=== PATIENT | female | born 2000 | race Caucasian/White ===

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

== ENCOUNTER 2018-01-17 20:21 | Emergency (ER) | payer OTHER ==
[2018-01-17 20:36] VITALS: BP 133/87
[2018-01-17] MEDS ORDERED: Ondansetron ODT TAB* 4 MG SL ONE (20:39)
[2018-01-17] MEDS ORDERED: Meclizine TAB* 12.5 MG PO ONE (20:40)
[2018-01-17] MEDS ORDERED: Diazepam SYRINGE* 5 MG/ML 2 ML SYRINGE (10 MG total) IM ONE (21:16)
--- NOTE | 2018-01-17 21:18 | UC ---
Dizzy HPI HPI Summary: Pt is a 17 year old female presenting to the UC with a chief complaint of dizziness and nausea. According to the pt, everything is spinning and walking is difficult. The sx came on when she woke up but she thought it was just being tired, and it got much worse at some point later in the day. Moving her head, eyes, and closing her eyes makes it worse. Keeping her head still helps. The pt is unsure if she has gone through this before, and that her arms and legs are somewhat tingly. The pt denies any swimming, changes in hearing, and any pain or stiffness in neck, as well as any hx of tobacco or marijuana use. Pt also reports heart palpitations and sob when she moves, and a single glass of wine last night, as well as a hx of GERD, esophageal spasms, and scoliosis. Pt is on no meds currently. - History Of Current Complaint Chief Complaint: UCGeneralIllness Stated Complaint: NAUSEA Time Seen by Provider: 01/17/18 20:37 Hx Obtained From: Patient Hx Last Menstrual Period: 01/17/18 Onset/Duration: Gradual Onset, Lasting Hours - since this morning Timing: Constant Severity Initially: Mild Severity Currently: Mild Pain Intensity: 0 Pain Scale Used: 0-10 Numeric Character: Room Spinning, Dizzy Aggravating Factor(s): Exertion, Position Change Alleviating Factor(s): Other - not moving Associated Signs And Symptoms: Positive: Nausea, Vomiting, SOB, Palpitations - Allergies/Home Medications Allergies/Adverse Reactions: Allergies Allergy/AdvReac Type Severity Reaction Status Date / Time ranitidine [From Zantac] Allergy Unknown Verified 01/17/18 20:36 Reaction Details PMH/Surg Hx/FS Hx/Imm Hx Previously Healthy: No - hx of scoliosis Endocrine History: Diabetes - negative GI/ History: Gastroesophageal Reflux, Other Other GI/ History: esophageal spasms - Surgical History Surgical History: Yes Surgery Procedure, Year, and Place: right foot 5th toe - Family History Known Family History: Positive: Hypertension, Blood Disorder - anemia - Social History Occupation: Student Lives: Dormitory/Roommates Alcohol Use: Rare Substance Use Type: None Smoking Status (MU): Never Smoked Tobacco Review of Systems Constitutional: Fever Respiratory: Shortness Of Breath Gastrointestinal: Vomiting, Nausea Neurological: Weakness, Other - dizziness, tingling in extremities All Other Systems Reviewed And Are Negative: Yes Physical Exam - Summary Physical Exam Summary: Appearance: Well-appearing, Well-nourished Skin: Warm Eyes: Normal ENT: Normal Neck: Supple, nontender Respiratory: Clear to auscultation Cardiovascular: Normal S1, S2. No murmurs. Normal distal pulses in tibial and radial bilaterally. Abdomen: Soft, nontender Musculoskeletal: Normal, Strength/ROM Intact Neurological: Normal, A&Ox3 Psychiatric: Normal General: No acute distress Triage Information Reviewed: Yes Vital Signs: Initial Vital Signs Temp 100 F 01/17/18 20:30 Pulse 94 01/17/18 20:30 Resp 20 01/17/18 20:30 BP 133/87 01/17/18 20:30 Pulse Ox 100 01/17/18 20:30 Vital Signs Reviewed: Yes Dizzy Course/Dx - Course Course Of Treatment: Symptoms consistent with peripheral vertigo, patient feels much better after medications given, instructed to follow up with primary care physician. Agrees to and understands discharge instructions. Vital signs stable, well-appearing. Normal gait. - Differential Dx/Diagnosis Provider Diagnoses: bppv Discharge - Sign-Out/Discharge Documenting (check all that apply): Patient Departure - home All imaging exams completed and their final reports reviewed: No Studies - Discharge Plan Condition: Stable Disposition: HOME Prescriptions: LORazepam TAB(*) [Ativan 0.5 MG TAB (*)] 0.5 mg PO BEDTIME PRN #6 tab MDD 1 tab PRN Reason: Dizziness Meclizine TAB* [Antivert 12.5 TAB*] 25 mg PO TID PRN #20 tab PRN Reason: Dizziness Ondansetron ODT TAB* [Zofran 4 MG Odt TAB*] 4 mg PO Q8H PRN #12 tab.odt PRN Reason: Nausea Patient Education Materials: Vertigo (DC), Dizziness (ED) Forms: *School Release Referrals: Breanna Barr MD [Medical Doctor] - Additional Instructions: PLEASE MAKE AN APPOINTMENT TO SEE A PRIMARY CARE DOCTOR WITHIN 1-2 WEEKS IF NO IMPROVEMENT. PLEASE TAKE MEDICATIONS DIRECTED. PLEASE DO NOT OPERATE MACHINERY WHILE TAKING THESE MEDICATIONS. PLEASE SEEK MEDICAL ATTENTION IMMEDIATELY FOR ANY WORSENING OR CONCERNING SYMPTOMS. - Billing Disposition and Condition Condition: STABLE Disposition: Home - Attestation Statements Document Initiated by Scribe: Yes Documenting Scribe: Melania Edmonds Provider For Whom Scribe is Documenting (Include Credential): Davion Barnes MD. Scribe Attestation: Melania Hawkins, scribed for Davion Barnes MD. on 01/17/18 at 2325. Scribe Documentation Reviewed: Yes Provider Attestation: The documentation as recorded by the Melania mensah accurately reflects the service I personally performed and the decisions made by me, Davion Barnes MD.
[2018-01-17] MEDS ORDERED: LORazepam TAB(*) 1 MG PO ONE (21:27)
== END 2018-01-17 22:30 | disposition home or self-care (01) ==
LOC: UCEAST 20:21
DX: H81.11 Benign paroxysmal vertigo, right ear (principal); Z88.8 Allergy status to other drugs, medicaments and biological substances
CPT/HCPCS: 99212; A9270-GY; G0463; J3360

== ENCOUNTER 2018-04-18 20:59 | Emergency (ER) | payer OTHER ==
[2018-04-18 21:07] VITALS: BP 130/93
[2018-04-18] MEDS ORDERED: Ibuprofen TAB* 600 MG PO ONE (21:13)
--- NOTE | 2018-04-18 21:17 | UC ---
Lower Extremity/Ankle HPI - HPI Summary HPI Summary: 17-year-old woman comes in to clinic today with a chief complaint of right ankle pain swelling and injury. Today the patient tripped and fell down 2 stairs and she inverted her right ankle. Should pain right away in the lateral aspect and swelling of the distal malleolus. He has been able to bear weight but it does hurt to bear weight. When she rested the pain is less. No prior injury to that ankle. Denies other injuries. - History of Current Complaint Chief Complaint: UCUpperExtremity Stated Complaint: ANKLE INJURY Time Seen by Provider: 04/18/18 21:10 Hx Last Menstrual Period: 3 wks ago Pain Intensity: 4 - Allergies/Home Medications Allergies/Adverse Reactions: Allergies Allergy/AdvReac Type Severity Reaction Status Date / Time ranitidine [From Zantac] Allergy Unknown Verified 04/18/18 21:07 Reaction Details Home Medications: Home Medications Escitalopram Oxalate [Lexapro 10 mg] 1 tab PO DAILY 04/18/18 [History Confirmed 04/18/18] PMH/Surg Hx/FS Hx/Imm Hx Previously Healthy: Yes - Surgical History Surgical History: Yes Surgery Procedure, Year, and Place: right foot 5th toe - Family History Known Family History: Positive: None, Hypertension, Blood Disorder - anemia - Social History Alcohol Use: Rare Substance Use Type: None Smoking Status (MU): Never Smoked Tobacco Review of Systems All Other Systems Reviewed And Are Negative: Yes Constitutional: Positive: Negative Skin: Positive: Negative Eyes: Positive: Negative ENT: Positive: Negative Respiratory: Positive: Negative Cardiovascular: Positive: Negative Gastrointestinal: Positive: Negative Motor: Positive: Negative Neurovascular: Positive: Negative Musculoskeletal: Positive: Other: - SEE HPI Neurological: Positive: Negative Psychological: Positive: Negative Is Patient Immunocompromised?: No Physical Exam Triage Information Reviewed: Yes Appearance: Well-Appearing, Well-Nourished, Pain Distress - MILD Vital Signs: Initial Vital Signs Temp 98.7 F 04/18/18 21:04 Pulse 88 04/18/18 21:04 Resp 16 04/18/18 21:04 BP 130/93 04/18/18 21:04 Pulse Ox 99 04/18/18 21:04 Vital Signs Reviewed: Yes Eye Exam: Normal Eyes: Positive: Conjunctiva Clear Neck exam: Normal Neck: Positive: Supple Respiratory: Positive: No respiratory distress Musculoskeletal: Positive: Other: - The right ankle is swollen over the lateral malleolus. It is tender just distal to the lateral malleolus. The medial malleolus is nontender. Achilles tendon is intact and nontender the rest the foot is nontender. Normal capillary refill normal pulses no sensation deficit. Neurological: Positive: Alert, Muscle Tone Normal Psychological Exam: Normal Psychological: Positive: Age Appropriate Behavior Skin Exam: Normal Lower Extremity Course/Dx - Course Course Of Treatment: I discussed the x-rays with the patient. I do not see any fracture. Radiologist reading is pending. The plan now is Sudhir wrap and gel splint and crutches weightbearing as tolerated ice elevation and anti- inflammatories. Follow[facility]up with [facility] if not completely improved. - Differential Dx/Diagnosis Provider Diagnosis: Right ankle sprain Discharge - Sign-Out/Discharge Documenting (check all that apply): Patient Departure All imaging exams completed and their final reports reviewed: No - Discharge Plan Condition: Stable Disposition: HOME Patient Education Materials: Ankle Sprain (ED), Crutch Instructions (ED) Referrals: [facility] @ [Outside] Additional Instructions: FOLLOW UP WITH YOUR DOCTOR IF NOT COMPLETELY IMPROVED. GET RECHECKED FOR ANY WORSENING OF YOUR CONDITION OR QUESTIONS OR CONCERNS. - Billing Disposition and Condition Condition: STABLE Disposition: Home
--- NOTE | 2018-04-19 13:41 | UC ---
- Progress Note Progress Note: RADIOLOGY REPORT REVIEWED. SOFT TISSUE SWELLING BUT NO FRACTURE. NO CHANGE IN MANAGEMENT. Course/Dx - Diagnoses Provider Diagnoses: Right ankle sprain Discharge - Sign-Out/Discharge Documenting (check all that apply): Post-Discharge Follow Up All imaging exams completed and their final reports reviewed: Yes - Discharge Plan Condition: Stable Disposition: HOME Patient Education Materials: Ankle Sprain (ED), Crutch Instructions (ED) Referrals: [facility] @ [Outside] Additional Instructions: FOLLOW UP WITH YOUR DOCTOR IF NOT COMPLETELY IMPROVED. GET RECHECKED FOR ANY WORSENING OF YOUR CONDITION OR QUESTIONS OR CONCERNS. - Billing Disposition and Condition Condition: STABLE Disposition: Home
== END 2018-04-18 21:57 | disposition home or self-care (01) ==
LOC: UCEAST 20:59
DX: S93.401A Sprain of unspecified ligament of right ankle, initial encounter (principal); W10.9XXA Fall (on) (from) unspecified stairs and steps, initial encounter; Y92.9 Unspecified place or not applicable; Z88.8 Allergy status to other drugs, medicaments and biological substances
CPT/HCPCS: 99213; A9270-GY; G0463

== ENCOUNTER 2019-04-29 20:45 | Emergency (ER) | payer OTHER ==
--- OUTSIDE RECORDS SUMMARY | 2019-04-29 20:52 | XMS REPORT | Continuity of Care Document ---
:2000 External Reference #:[id number] Author Name CORI Irving Address [address] [place] [id number] Problems Active Problems Provider Date Gastroesophageal reflux disease Onset: 09/01/2018 Anxiety Onset: 08/16/2018 Social History Type Date Description Comments Sex Unknown Allergies, Adverse Reactions, Alerts Description No Information Available Medications Active Medications SIG Qnty Indications Ordering Provider Date Trazodone HCL 1 daily Oral Unknown 08/15/2018 50mg Tablets Medications Administered in Office Medication SIG Qnty Indications Ordering Provider Date Meningococcal Conjugate Vaccine Unknown 11/20/2014 (Menveo) Injection Meningococcal Conjugate Vaccine Unknown 10/09/2009 (Menveo) Injection DTaP Vaccine Younger Than 7 Unknown 06/29/2003 (Infanrix) Injection DTaP Vaccine Younger Than 7 Unknown 11/27/1999 (Infanrix) Injection DTaP Vaccine Younger Than 7 Unknown 1998 (Infanrix) Injection DTaP Vaccine Younger Than 7 Unknown 1998 (Infanrix) Injection DTaP Vaccine Younger Than 7 Unknown 1998 (Infanrix) Injection Immunizations CPT Code Status Date Vaccine Lot # [id number] Given 02/28/2019 Flu < 65 years [id number] 44209 Given 07/24/2016 Bexsero - Men B 15141 Given 06/01/2016 Bexsero - Men B 89054 Given 10/12/2014 HPV Gardasil 9 35023 Given 02/05/2014 HPV Gardasil 9 29404 Given 11/20/2013 HPV Gardasil 9 71990 Given 10/27/2010 Hep A Adult for >18 yrs Havrix/Vaqta 06754 Given 10/09/2009 Tdap - Boostrix/Adacel 03519 Given 10/09/2009 Tdap - Boostrix/Adacel 83689 Given 10/09/2009 Tdap - Boostrix/Adacel 83390 Given 10/09/2009 Hep A Adult for >18 yrs Havrix/Vaqta 13206 Given 09/29/2006 Varicella (Chicken Pox) Vaccine 54566 Given 06/29/2003 Polio - Ipol 38863 Given 06/29/2003 MMR Vaccine 35048 Given 01/23/2000 Prevnar 13 74891 Given 11/27/1999 Prevnar 13 50616 Given 11/27/1999 Polio - Ipol 04088 Given 09/01/1999 MMR Vaccine 59419 Given 09/01/1999 Hib ActiHib/Hiberix 31220 Given 06/02/1999 Varicella (Chicken Pox) Vaccine 63383 Given 02/25/1999 Hep B 11-15yr, Recombivax 1.0ml dose only 56506 Given 1998 Rotarix 20202 Given 1998 Hib ActiHib/Hiberix 21219 Given 1998 Polio - Ipol 25185 Given 1998 Rotarix 14217 Given 1998 Hib ActiHib/Hiberix 22672 Given 1998 Hep B 11-15yr, Recombivax 1.0ml dose only 61119 Given 1998 Hep B 11-15yr, Recombivax 1.0ml dose only 70584 Given 1998 Polio - Ipol 15140 Given 1998 Hib ActiHib/Hiberix Vital Signs Date Vital Result Comment 02/28/2019 1:42pm BP Systolic 110 mmHg BP Diastolic 80 mmHg Height 67.75 inches 5'7.75" Weight 119.00 lb Heart Rate 85 /min Body Temperature 98.6 F O2 % BldC Oximetry 97 % BMI (Body Mass Index) 18.2 kg/m2 08/15/2018 9:31am BP Systolic 120 mmHg Height 68.00 inches 5'8.00" Weight 112.00 lb Heart Rate 94 /min Body Temperature 97.9 F O2 % BldC Oximetry 99 % BMI (Body Mass Index) 17.03 kg/m2 Results Test Date Facility Test Result H/L Range Note Laboratory test [facility] Lyme Screen W/ Negative Negative 1 finding [address] [place] [address] [phone] 1,25 Dihydroxy [facility] Calcitriol 49 pg/mL 18- 78 2 Vitamin D [address] [place] [address] [phone] CBC Auto Diff [facility] White Blood 5.7 10^3/uL Normal 3.5-10.[address] [place] [address] [phone] Red Blood Count 4.56 10^6/uL Normal 3.70-4.87 Hemoglobin 12.8 g/dL Normal 12.0-16.0 Hematocrit 38 % Normal 35-47 Mean Corpuscular Volume 84 fL Normal 80-97 Mean Corpuscular Hemoglobin 28 pg Normal 27-31 Mean Corpuscular HGB Conc 33 g/dL Normal 31-36 Red Cell Distribution Width 13 % Normal 10-15 Platelet Count 185 10^3/uL Normal 150-450 Mean Platelet Volume 8.0 fL Normal 7.4-10.4 Abs Neutrophils 3.9 10^3/uL Normal 1.5-7.7 Abs Lymphocytes 1.2 10^3/uL Normal 1.0-4.8 Abs Monocytes 0.6 10^3/uL Normal 0-0.8 Abs Eosinophils 0.0 10^3/uL Normal 0-0.6 Abs Basophils 0.0 10^3/uL Normal 0-0.2 Abs Nucleated RBC 0.0 10^3/uL Granulocyte % 68.3 % Lymphocyte % 21.1 % Monocyte % 10.4 % Eosinophil % 0.1 % Basophil % 0.1 % Nucleated Red Blood Cells % 0.0 Comp Metabolic 03/01/2019 [facility] Sodium 140 mmol/L Normal 135-145 Panel [address] [place] [address] [phone] Potassium 3.7 mmol/L Normal 3.5-5.0 Chloride 106 mmol/L Normal 101-111 Co2 Carbon Dioxide 27 mmol/L Normal 22-32 Anion Gap 7 mmol/L Normal 2-11 Glucose 84 mg/dL Normal 70-100 Blood Urea Nitrogen 18 mg/dL Normal 6-24 Creatinine 0.77 mg/dL Normal 0.51-0.95 BUN/Creatinine Ratio 23.4 High 8-20 Calcium 9.3 mg/dL Normal 8.6-10.3 Total Protein 7.0 g/dL Normal 6.4-8.9 Albumin 4.5 g/dL Normal 3.2-5.2 Globulin 2.5 g/dL Normal 2-4 Albumin/Globulin Ratio 1.8 Normal 1-3 Total Bilirubin 0.70 mg/dL Normal 0.2-1.0 Alkaline Phosphatase 71 U/L Normal 34-104 Alt 13 U/L Normal 7-52 Ast 16 U/L Normal 13-39 Egfr Non- 95.6 >60 Egfr 115.6 >60 3 Laboratory test 03/01/2019 [facility] Vitamin B12 598 pg/mL Normal 180-914 4 finding [address] [place] [address] [phone] Ferritin 25.4 ng/mL Normal 11-307 Connective Tissue 03/01/2019 [facility] Anti-Nuclear 6.3 U High 5 Panel 201 [facility] [place] [address] [phone] Cyclic Citrullinated Peptide <15.6 U 6 Celsa Igg AB Reflex 03/01/2019 [facility] SS-A/Ro Antibody <0.2 U 7 [address] [place] [address] [phone] SS-B/La Antibody <0.2 U 8 Sm (Hackett) IgG Antibody <0.2 U 9 FOOD DEHYDRATOR OPERATOR Antibody, IgG <0.2 U 10 Scl-70 (Scleroderma) Antibody >8.0 U Abnormal 11 Adenike-1 Antibody <0.2 U 12 Laboratory test finding 03/01/2019 [facility] Centromere Abs < 0.2 U 13 [address] [place] [address] [phone] Ribosomal Antibody <0.2 U 14 Anti Double Stranded Dna Ab < 12.3 IU/mL 15 Interpretation See Comment 16 1 [id number] ADDITIONAL INFORMATION This test was developed and its performance characteristics determined by [facility] in a manner consistent with CLIA requirements. This test has not been cleared or approved by the U.S. Food and Drug Administration. Test Performed by: [facility] [address] [place] [address] Party Plan Sales Host/Hostess: Idris Garay M.D. Ph.D.; CLIA# [id number] 3 Because ethnic data is not always readily available, this report includes an eGFR for both -Americans and non- Americans. The National Kidney Disease Education Program (NKDEP) does not endorse the use of the MDRD equation for patients that are not between the ages of 18 and 70, are , have extremes of body size, muscle mass, or nutritional status, or are non- or non-. According to the National Kidney Foundation, irrespective of diagnosis, the stage of the disease is based on the level of kidney function: Stage Description GFR(mL/min/1.73 m(2)) 1 Kidney damage with normal or decreased GFR 90 2 Kidney damage with mild decrease in GFR 60-89 3 Moderate decrease in GFR 30-59 4 Severe decrease in GFR 15-29 5 Kidney failure <15 (or dialysis) 4 Normal Range 180 to 914 Indeterminate Range 145 to 180 Deficient Range <145 5 Interpretation: Strong Positive (>=6.0) REFERENCE VALUE <=1.0 (Negative) 6 REFERENCE VALUE <20.0 (Negative) Test Performed by: [address] [address] Party Plan Sales Host/Hostess: Idris Garay M.D. Ph.D.; CLIA# [id number] 7 REFERENCE VALUE <1.0 (Negative) 8 REFERENCE VALUE <1.0 (Negative) 9 REFERENCE VALUE <1.0 (Negative) 10 REFERENCE VALUE <1.0 (Negative) 11 Interpretation: Positive (>=1.0) REFERENCE VALUE <1.0 (Negative) 12 REFERENCE VALUE <1.0 (Negative) Test Performed by: [facility] [place] [address] Party Plan Sales Host/Hostess: Idris Garay M.D. Ph.D.; CLIA# [id number] 13 REFERENCE VALUE <1.0 (Negative) Test Performed by: [facility] [place] [address] Party Plan Sales Host/Hostess: Idris Garay M.D. Ph.D.; CLIA# [id number] 14 REFERENCE VALUE <1.0 (Negative) Test Performed by: [facility] [place] [address] Party Plan Sales Host/Hostess: Idris Garay M.D. Ph.D.; CLIA# [id number] 15 Negative for dsDNA antibody by enzyme immunoassay. No further testing recommended. REFERENCE VALUE <30.0 (Negative) Test Performed by: [facility] [place] [address] Party Plan Sales Host/Hostess: Idris Garay M.D. Ph.D.; CLIA# [id number] 16 RESULT: Consistent with Scleroderma (systemic sclerosis). Test Performed by: [facility] [place] [address] Party Plan Sales Host/Hostess: Idris Garay M.D. Ph.D.; CLIA# [id number] Procedures Description No Information Available Medical Devices Description No Information Available Encounters Type Date Location Provider Dx Diagnosis Office Visit 02/28/2019 [facility] CORI Irving M25.50 Pain in unspecified 2:00p joint R53.83 Other fatigue Z68.1 Body mass index (BMI) 19.9 or less, adult Assessments Date Code Description Provider 02/28/2019 M25.50 Pain in unspecified joint CORI Irving 02/28/2019 R53.83 Other fatigue CORI Irving 02/28/2019 Z68.1 Body mass index (BMI) 19.9 or less, adult CORI Irving Plan of Treatment Future Appointment(s):03/20/2019 10:45 am - CORI Irving at [facility] - NATHANIEL IrvingPM25.50 Pain in unspecified jointComments:Will run bloodwork to check for autoimmune disorders. Mentioned concerns about hemochromatosis so will check a ferretin level. Consider rheum referral or other depending on results. Office to phone once results back, follow up in 2- 3 weeks as disc. Sooner as needed. Ensure Shameka Bright send us PN from you visit with her next week. Last PAP results requested from PP.R53.83 Other [id number] Body mass index (BMI) 19.9 or less, adult Functional Status Description No Information Available Mental Status Description No Information Available Referrals Description No Information Available
--- OUTSIDE RECORDS SUMMARY | 2019-04-29 20:52 | XMS REPORT | Continuity of Care Document ---
:2000 External Reference #:[id number] Author Name Shameka Novoa N.P. (transmitted by agent of provider Chelsy Haddad) Address [facility], [place] [address] Problems Description No Information Available Social History Type Date Description Comments Sex Unknown Tobacco Use Start: Unknown Patient has never smoked Smoking Status Reviewed: 03/06/19 Patient has never smoked Exercise Type/Frequency Exercises regularly Allergies, Adverse Reactions, Alerts Description No Known Drug Allergies Medications Active Medications SIG Qnty Indications Ordering Provider Date Norgestim-Eth Estrad 1 by mouth every 84tabs Shameka Novoa NMily 03/06/2019 Triphasic day 0.18/0.215/0.25 mg-25 mcg Tablets Lexapro 1 by mouth every Unknown 20mg Tablets day Trazodone HCL take 1 tablet by Unknown 150mg mouth at bedtime Tablets Immunizations Description No Information Available Vital Signs Date Vital Result Comment 03/06/2019 2:10pm Height 68 inches 5'8" Weight 121.00 lb Heart Rate 78 /min BP Systolic 137 mmHg BP Diastolic 84 mmHg O2 % BldC Oximetry 97 % BMI (Body Mass Index) 18.4 kg/m2 Last Menstrual Period [id number] Results Description No Information Available Procedures Description No Information Available Medical Devices Description No Information Available Encounters Description No Information Available Assessments Description No Information Available Plan of Treatment No Information Available Functional Status Description No Information Available Mental Status Description No Information Available Referrals Refer to Reason for Referral Status Appt Date [facility] Pelvic pain, intermittent not Created associated with sex [address] [place] [id number] [phone]
[2019-04-29 20:56] VITALS: BP 146/93
[2019-04-29] MEDS ORDERED: Ondansetron ODT TAB* 4 MG PO ONE (21:53)
--- NOTE | 2019-04-29 22:02 | UC ---
Head Injury HPI - HPI Summary HPI Summary: AT TRIAGE PATIENT COMPLAINED OF NAUSEA, CHILLS, SCRATCHY THROAT AND FEELING OFF FOR ABOUT A DAY. UPON QUESTIONING BY MYSELF DURING THE ENCOUNTER SHE RELATES A HEAD INJURY SUSTAINED THE NIGHT BEFORE. STATES SHE THREW HER HEAD BACK TO LAUGH AND STRUCK THE BACK OF HER HEAD ON A HARD PIECE OF FURNITURE. DENIES ANY LOC BUT SINCE THEN HAS HAD HEADACHE, NAUSEA, DIZZINESS AND OCCASIONAL DIFFICULTY FOCUSING. NO VOMITING. TOOK IBUPROFEN WHICH HELPED A BIT. - History Of Current Complaint Chief Complaint: UCRespiratory Stated Complaint: HOT, CHILLS, DOESN'T FEEL RIGHT Time Seen by Provider: 04/29/19 21:39 Hx Obtained From: Patient Hx Last Menstrual Period: March 24, 2019 Onset/Duration: Sudden Onset, Lasting Days - DAY, Still Present Severity Currently: Moderate Severity Initially: Moderate Pain Intensity: 0 Pain Scale Used: 0-10 Numeric Character: Dull Aggravating Factor(s): Nothing Alleviating Factor(s): Nothing Associated Signs And Symptoms: Positive: Nausea. Negative: LOC (Time In Secs./ Mins/Hrs), Neck Pain, Vomiting - Allergies/Home Medications Allergies/Adverse Reactions: Allergies Allergy/AdvReac Type Severity Reaction Status Date / Time ranitidine [From Zantac] Allergy Unknown Verified 04/29/19 20:56 Reaction Details Home Medications: Home Medications traZODone TAB* [Desyrel TAB*] 150 mg PO DAILY 04/29/19 [History Confirmed ] PMH/Surg Hx/FS Hx/Imm Hx Psychological History: Anxiety, Depression - Surgical History Surgical History: Yes Surgery Procedure, Year, and Place: Right foot 5th toe - Family History Known Family History: Positive: Hypertension, Blood Disorder - anemia - Social History Alcohol Use: Rare Substance Use Type: None Smoking Status (MU): Never Smoked Tobacco Review of Systems All Other Systems Reviewed And Are Negative: Yes Constitutional: Positive: Negative Skin: Positive: Negative Respiratory: Positive: Negative Cardiovascular: Positive: Negative Gastrointestinal: Positive: Nausea Neurological: Positive: Headache, Other - DIZZY Physical Exam Triage Information Reviewed: Yes Appearance: Well-Appearing, No Pain Distress, Well-Nourished Vital Signs: Initial Vital Signs Temp 98.6 F 04/29/19 20:52 Pulse 82 04/29/19 20:52 Resp 12 12/07/19 20:52 BP 146/93 04/29/19 20:52 Pulse Ox 99 04/29/19 20:52 Vital Signs Reviewed: Yes Eyes: Positive: Conjunctiva Clear ENT: Positive: Hearing grossly normal, Pharynx normal, TMs normal Neck: Positive: Supple, Nontender, No Lymphadenopathy Respiratory Exam: Normal Cardiovascular Exam: Normal Abdomen Description: Positive: Soft Musculoskeletal: Positive: No Edema Neurological: Positive: Alert Psychological: Positive: Age Appropriate Behavior Skin: Negative: Rashes Head Injury Course/Dx - Course Course Of Treatment: UPON ENTERING THE EXAM ROOM AND ASKING PATIENT WHAT BROUGHT HER IN SHE PROCEEDED TO TELL ME ABOUT A HEAD INJURY THAT WAS SUSTAINED THE PREVIOUS EVENING. SHE DESCRIBES CONCUSSIVE SYMPTOMS INCLUDING HEADACHE, NAUSEA, DIZZINESS. SHE WAS MORE CONCERNED ABOUT THIS THAN ANY URI SYMPTOMS. WILL GIVE ZOFRAN TO HELP WITH THE NAUSEA. ADVISED BOTH PHYSICAL AND COGNITIVE REST TO HELP EXPEDITE RESOLUTION OF HER SYMPTOMS. NO INDICATION FOR NEUROIMAGING TODAY. SHE WILL FOLLOW-UP WITH HER PCP OR SPORTS MEDICINE IF HER CONCUSSIVE SYMPTOMS PERSIST PAST 1 WEEK. - Differential Dx/Diagnosis Provider Diagnosis: Concussion Discharge ED - Sign-Out/Discharge Documenting (check all that apply): Patient Departure All imaging exams completed and their final reports reviewed: No Studies - Discharge Plan Condition: Stable Disposition: HOME Prescriptions: Ondansetron ODT TAB* [Zofran Odt TAB*] 4 mg PO Q6H PRN #20 tab.odt PRN Reason: Nausea/Vomiting Patient Education Materials: Concussion (ED) Referrals: No Primary Care Phys,NOPCP [Primary Care Provider] - Additional Instructions: LIMIT SCREEN TIME AND AVOID ACTIVITIES THAT COULD RESULT IN ADDITIONAL HEAD INJURY. YOU NEED BOTH PHYSICAL AND COGNITIVE REST TO EXPEDITE RECOVERY. NO SPORTS FOR AT LEAST A WEEK. OTC MEDS NEEDED FOR DISCOMFORT. FOLLOW-UP WITH PCP IF SYMPTOMS ARE PERSISTENT AFTER 1 WEEK. GO TO THE ED WITHOUT FAIL IF YOU DEVELOP UNEQUAL PUPILS, VISUAL DISTURBANCE, GAIT INSTABILITY, SPEECH DIFFICULTY, NAUSEA/VOMITING, WORSENING HEADACHE, DIZZINESS, CONFUSION, WEAKNESS OR ANY OTHER CONCERNING SYMPTOMS. [facility] [address] [place] [address] PHONE: [facility]CUSSION [facility]NAGEMENT [facility] [phone] (M-F 8AM-4PM) [email or web address] (FOR HELP, INFO OR TO CONNECT WITH A SUPPORT GROUP) - Billing Disposition and Condition Condition: STABLE Disposition: Home
== END 2019-04-29 22:00 | disposition home or self-care (01) ==
LOC: UCEAST 20:45
DX: S06.0X0A Concussion without loss of consciousness, initial encounter (principal); F41.9 Anxiety disorder, unspecified; F32.9 Major depressive disorder, single episode, unspecified; Z79.899 Other long term (current) drug therapy; Z88.8 Allergy status to other drugs, medicaments and biological substances; W22.8XXA Striking against or struck by other objects, initial encounter; Y92.9 Unspecified place or not applicable
CPT/HCPCS: 99213; A9270-GY; G0463

== ENCOUNTER 2019-05-02 18:08 | Emergency (ER) | payer OTHER ==
[2019-05-02 18:27] VITALS: BP 126/79
[2019-05-02] MEDS ORDERED: Amoxicillin/Clavulanate TAB* 875 MG PO ONE (18:34)
--- NOTE | 2019-05-02 18:38 | UC ---
Hand/Wrist HPI - HPI Summary HPI Summary: 18 yo female states she was scratched on her left thumb by her cat yesterday. She is adamant that she was scratched and not bitten and that her cat's immunizations are up to date. She is right handed and her tetanus shot is up to date within 6 hours her thumb became painful and red and she started to have pus draining from wounds no fever no fever or chills - History Of Current Complaint Chief Complaint: UCLaceration Stated Complaint: CAT SCRATCH Time Seen by Provider: 05/02/19 18:26 Hx Obtained From: Patient Hx Last Menstrual Period: 1.5 months ago Onset/Duration: Sudden Onset, Lasting Hours Severity Initially: Mild Severity Currently: Mild Pain Intensity: 3 Pain Scale Used: 0-10 Numeric Character Of Pain: Aching, Throbbing Aggravating Factor(s): Movement Alleviating Factor(s): Rest Associated Signs And Symptoms: Positive: Swelling, Redness Related History: Dominant Hand Right Hands: 1 - PW draining pus 2 - pw draining pus 3 - erythema 4 - able to flex and extend joint but ROM is limited and painful - Allergies/Home Medications Allergies/Adverse Reactions: Allergies Allergy/AdvReac Type Severity Reaction Status Date / Time ranitidine [From Zantac] Allergy Unknown Verified 05/02/19 18:24 Reaction Details PMH/Surg Hx/FS Hx/Imm Hx Previously Healthy: Yes - Surgical History Surgical History: Yes Surgery Procedure, Year, and Place: Right foot 5th toe - Family History Known Family History: Positive: Hypertension, Blood Disorder - anemia - Social History Alcohol Use: Rare Substance Use Type: None Smoking Status (MU): Never Smoked Tobacco Review of Systems All Other Systems Reviewed And Are Negative: Yes Constitutional: Positive: Negative Skin: Positive: Other - see hpi Eyes: Positive: Negative ENT: Positive: Negative Respiratory: Positive: Negative Cardiovascular: Positive: Negative Gastrointestinal: Positive: Negative Genitourinary: Positive: Negative Motor: Positive: Negative Musculoskeletal: Positive: Arthralgia - see HPI Neurological: Positive: Negative Psychological: Positive: Negative Physical Exam Triage Information Reviewed: Yes Appearance: Well-Appearing, No Pain Distress, Well-Nourished Vital Signs: Initial Vital Signs Temp 99.3 F 05/02/19 18:25 Pulse 72 05/02/19 18:25 Resp 18 05/02/19 18:25 BP 126/79 05/02/19 18:25 Pulse Ox 98 05/02/19 18:25 Vital Signs Reviewed: Yes Eyes: Positive: Conjunctiva Clear ENT: Positive: Hearing grossly normal, Uvula midline. Negative: Nasal congestion, Nasal drainage, Trismus, Muffled voice, Hoarse voice Neck: Positive: Supple, Nontender, No Lymphadenopathy Respiratory: Positive: Lungs clear, Normal breath sounds, No respiratory distress Cardiovascular: Positive: RRR, No Murmur Musculoskeletal: Positive: Other: - see image Neurological: Positive: Alert Hand/Wrist Course/Dx - Differential Dx/Diagnosis Provider Diagnosis: Cat bite of left thumb with infection Discharge ED - Sign-Out/Discharge Documenting (check all that apply): Patient Departure All imaging exams completed and their final reports reviewed: No Studies - Discharge Plan Condition: Stable Disposition: HOME Prescriptions: Amoxicillin/Clavulanate TAB* [Augmentin TAB 875*] 875 mg PO BID #14 tab Patient Education Materials: Cellulitis (ED) Referrals: Sofya Mathew MD [Medical Doctor] - 1 Day Additional Instructions: you have a cellulitis due to your cat injury (scratch vs bite) I am concerned because of it rapid spread and because it is near a joint warm soaks elevation I suggest this get recheck tomorrow by a specialist - Billing Disposition and Condition Condition: STABLE Disposition: Home
--- NOTE | 2019-05-05 17:10 | UC ---
- Progress Note Progress Note: Wound culture results reviewed. Grew out Pateurella multocida which is commonly found in the GI tract of cats and dogs and consistent with patient's history. She was placed on Augmentin which should cover for this pathogen. She was instructed to follow up with hand surgery the next day. Nursing to contact patient and ensure follow up as well as improvement in symptoms. If patient is not improving or has worsening of symptoms, should go to immediately to the ED for evaluation. Course/Dx - Diagnoses Provider Diagnoses: Cat bite of left thumb with infection Discharge ED - Sign-Out/Discharge Documenting (check all that apply): Post-Discharge Follow Up All imaging exams completed and their final reports reviewed: No Studies - Discharge Plan Condition: Stable Disposition: HOME Prescriptions: Amoxicillin/Clavulanate TAB* [Augmentin TAB 875*] 875 mg PO BID #14 tab Patient Education Materials: Cellulitis (ED) Referrals: Sofya Mathew MD [Medical Doctor] - 1 Day Additional Instructions: you have a cellulitis due to your cat injury (scratch vs bite) I am concerned because of it rapid spread and because it is near a joint warm soaks elevation I suggest this get recheck tomorrow by a specialist - Billing Disposition and Condition Condition: STABLE Disposition: Home
== END 2019-05-02 18:50 | disposition home or self-care (01) ==
LOC: UCEAST 18:08
DX: S61.052A Open bite of left thumb without damage to nail, initial encounter (principal); L08.9 Local infection of the skin and subcutaneous tissue, unspecified; W55.01XA Bitten by cat, initial encounter; Y92.9 Unspecified place or not applicable; Z88.8 Allergy status to other drugs, medicaments and biological substances
CPT/HCPCS: 87070; 87077; 87186; 87205; 99212; A9270-GY; G0463

== ENCOUNTER 2019-05-08 16:02 | Emergency (ER) | payer OTHER ==
--- OUTSIDE RECORDS SUMMARY | 2019-05-08 16:21 | XMS REPORT | Continuity of Care Document ---
:2000 External Reference #:[id number] Author Name Lynn Uriarte M.D. (transmitted by agent of provider Jia Zelaya) Address [address] [place] [address] Care Team Providers Name Role Phone Liz Khan,RADIO STATION MANAGER - Family Care Team Information Project Drilling Engineer [phone] Problems Description No Information Available Social History Type Date Description Comments Sex Unknown Tobacco Use Start: Unknown Never Smoked Cigarettes Smoking Status Reviewed: 03/06/19 Never Smoked Cigarettes Tobacco Use Start: Unknown Patient has never smoked Exercise Type/Frequency Exercises regularly Allergies, Adverse Reactions, Alerts Active Allergies Reaction Severity Comments Date Zantac Unknown 05/04/2019 Inactive Allergies NKDA 03/06/2019 Medications Active Medications SIG Qnty Indications Ordering Provider Date Amoxicillin 1 tab by mouth Unknown 05/02/2019 twice daily for 10 days Levonorgestrel/Ethiny Take on tablet 84tabs Shameka Novoa, N.P. 04/04/2019 l Estradiol daily 0.15-0.03mg Tablets Lexapro 1 by mouth every Unknown 20mg Tablets day Trazodone HCL take 1 tablet by Unknown 150mg mouth at bedtime Tablets Zofran one twice a day Unknown 8mg Tablets as needed nausea Immunizations Description No Information Available Vital Signs Date Vital Result Comment 03/06/2019 2:10pm Height 68 inches 5'8" Weight 121.00 lb Heart Rate 78 /min BP Systolic 137 mmHg BP Diastolic 84 mmHg O2 % BldC Oximetry 97 % BMI (Body Mass Index) 18.4 kg/m2 Last Menstrual Period [id number] Results Test Acquired Facility Test Result H/L Range Note Date Testosterone Free 03/06/2019 [facility] Free 0.29 ng/dL 0.06- 1.08 1 & Total [address] [place] [address] ng/dl [phone] Testosterone 24 ng/dL 8-60 2 Laboratory test 03/06/2019 [facility] Sex Hormone 53 nmol/L [address] [place] [address] [phone] Prolactin 20.5 ng/mL Normal 1.0-25.0 FSH And LH 03/06/2019 [facility] FSH (Follicle Stim 3.1 mIU/mL [address] DR[address] Hormone) [place] [address] [phone] LH (Lutenizing Hormone) 4.5 mIU/mL 5 Laboratory 03/06/2019 [facility] TSH (Thyroid 0.97 Normal 0.34 -5.[address] Stim Horm) mcIU/[place] [address] [phone] Dhea Sulfate 571 g/dL Abnormal 83-377 6 1 ADDITIONAL INFORMATION Testing performed by [facility]. This test was developed and its performance characteristics determined by [facility] in a manner consistent with CLIA requirements. This test has not been cleared or approved by the U.S. Food and Drug Administration. 2 ADDITIONAL INFORMATION Testing performed by [facility]at[facility]-Tandem Mass Spectrometry (LC-MS/MS). This test was developed and its performance characteristics determined by [facility] in a manner consistent with CLIA requirements. This test has not been cleared or approved by the U.S. Food and Drug Administration. Test Performed by: [facility] [employer] [facility] [place] [employer] [place] [address] Supervisor Refining: Idris Garay M.D. Ph.D.; CLIA# [id number] 3 REFERENCE VALUE 18-144 (non-) Test Performed by: [facility] - [address] [address] Supervisor Refining: Idris Garay M.D. Ph.D.; CLIA# [id number] 4 Normally menstruating females - Follicular phase 3 - 9 - Mid-cycle peak 4 - 23 - Luteal phase 1 - 6 Postmenopausal females 16 - 114 5 Normally menstruating females - Follicular Phase 1 - 18 - Mid-Cycle Peak 24 - 105 - Luteal Phase 0.6 - 20 Postmenopausal females 15 - 62 6 Test Performed by: [facility] [place] [id number] Supervisor Refining: Idris Garay M.D. Ph.D.; CLIA# [id number] Procedures Description No Information Available Medical Devices Description No Information Available Encounters Type Date Location Provider Dx Diagnosis Office Visit 03/06/2019 [facility] Shameka Novoa NMily R10.2 Pelvic and 2:00p [facility] perineal pain N92.6 Irregular menstruation, unspecified Assessments Date Code Description Provider 05/04/2019 W55.03xA Scratched by cat, initial encounter Lynn Uriarte M.D. 03/06/2019 R10.2 Pelvic and perineal pain Shameka Novoa N.P. 03/06/2019 N92.6 Irregular menstruation, unspecified Shameka Novoa N.P. Plan of Treatment Future Appointment(s):06/12/2019 3:00 pm - Olman Concepcion M.D. at [facility]05/04/2019 - Lynn Uriarte M.D.W55.03xA Scratched by cat, initial encounterFollow up:Follow up: As needed Functional Status Description No Information Available Mental Status Description No Information Available Referrals Refer to Reason for Referral Status Appt Date [facility] Physical Therapy Pelvic pain, intermittent not Sent associated with sex [address] [id number] [phone]
--- NOTE | 2019-05-08 18:08 | ED ---
Head Injury - HPI Summary HPI Summary: Patient with history of head injury 3 days ago with diagnosis of concussion states she hit her head again today with subsequent symptoms of fatigue, nausea , headache, mild imbalance, hard time finding her words. Denies LOC, vision change, amnesia, altered mental status, and. Patient states she backed into a metal cabinet which she hit her head. Denies any other pain, injury or symptoms. - History Of Current Complaint Chief Complaint: EDHeadache Stated Complaint: HEAD INJURY PER PT Time Seen by Provider: 05/08/19 17:52 Hx Obtained From: Patient Hx Last Menstrual Period: 1.5 months ago Mechanism Of Injury: Blunt Trauma Onset/Duration: Started Minutes Ago Onset of Pain: Immediate Severity Currently: Moderate Severity Initially: Moderate Pain Intensity: 6 Pain Scale Used: 0-10 Numeric Location of Head Injury: Occipital Location: Discrete At: Character: Dull, Throbbing Aggravating Factor(s): Movement Associated Signs And Symptoms: Headache - Allergies/Home Medications Allergies/Adverse Reactions: Allergies Allergy/AdvReac Type Severity Reaction Status Date / Time ranitidine [From Zantac] Allergy Unknown Verified 05/08/19 16:13 Reaction Details PMH/Surg Hx/FS Hx/Imm Hx Endocrine/Hematology History: Denies: Hx Anticoagulant Therapy Cardiovascular History: Denies: Hx Pacemaker/ICD History: Denies: Hx Dialysis Musculoskeletal History: Reports: Hx Scoliosis Sensory History: Denies: Hx Deafness Opthamlomology History: Denies: Hx Eye Prosthesis EENT History: Denies: Hx Deafness Neurological History: Denies: Hx Dementia - Surgical History Surgery Procedure, Year, and Place: Right foot 5th toe Infectious Disease History: No Infectious Disease History: Denies: Traveled Outside the [place] in Last 30 Days - Family History Known Family History: Positive: Hypertension, Blood Disorder - anemia - Social History Alcohol Use: Rare Substance Use Type: Reports: None Smoking Status (MU): Never Smoked Tobacco Review of Systems Positive: Fatigue Eyes: Negative ENT: Negative Cardiovascular: Negative Respiratory: Negative Gastrointestinal: Negative Genitourinary: Negative Musculoskeletal: Negative Skin: Negative Positive: Headache Psychological: Normal All Other Systems Reviewed And Are Negative: Yes Physical Exam - Summary Physical Exam Summary: Neuro exam normal. No evidence of trauma to mouth, face, head. Full range of motion of neck and jaw. Triage Information Reviewed: Yes Vital Signs On Initial Exam: Initial Vitals Temp Pulse Resp BP Pulse Ox 99.1 F 66 16 137/95 98 05/08/19 16:10 05/08/19 16:10 05/08/19 16:10 05/08/19 16:10 05/08/19 16:10 Vital Signs Reviewed: Yes Appearance: Positive: Well-Appearing Skin: Positive: Warm Head/Face: Positive: Normal Head/Face Inspection Eyes: Positive: Normal ENT: Positive: Normal ENT inspection Dental: Negative: Dental Fracture @, Bleeding Neck: Positive: Supple Respiratory/Lung Sounds: Positive: Clear to Auscultation Cardiovascular: Positive: Normal Abdomen Description: Positive: Nontender Musculoskeletal: Positive: Normal Neurological: Positive: Normal Psychiatric: Positive: Normal AVPU Assessment: Alert - [place] Coma Scale Best Eye Response: 4 - Spontaneous Best Motor Response: 6 - Obeys Commands Best Verbal Response: 5 - Oriented Coma Scale Total: 15 Procedures - Sedation Patient Received Moderate/Deep Sedation with Procedure: No Diagnostics - Vital Signs Vital Signs Temp Pulse Resp BP Pulse Ox 05/08/19 16:10 99.1 F 66 16 137/95 98 - Laboratory Lab Statement: Any lab studies that have been ordered have been reviewed, and results considered in the medical decision making process. Head Injury Course/Dx Course Of Treatment: Patient with history of head injury 3 days ago with diagnosis of concussion states she hit her head again today with subsequent symptoms of fatigue, nausea, headache, mild imbalance, hard time finding her words. Denies LOC, vision change, amnesia, altered mental status, and. Patient states she backed into a metal cabinet which she hit her head. Denies any other pain, injury or symptoms. Vital signs within normal limits. Patient does not meet Martin head CT criteria. - Diagnoses Provider Diagnoses: Head injury, Concussion Discharge ED - Sign-Out/Discharge Documenting (check all that apply): Patient Departure - Discharge Plan Condition: Stable Disposition: HOME Prescriptions: Ondansetron ODT TAB* [Zofran 4 MG Odt TAB*] 4 mg PO Q8H PRN 4 Days #14 tab.odt PRN Reason: Nausea Patient Education Materials: Concussion (ED), Head Injury (ED) Referrals: No Primary Care Phys,NOPCP [Primary Care Provider] - Additional Instructions: Alternate ibuprofen 400 mg with Tylenol 650 mg every 3 hours if needed for headache. Take Zofran as directed for nausea. Concussion symptoms may come and go but should gradually improve over the next couple weeks. Symptoms really triggered by exertion, bright lights, or television, long period of focus. Avoid activities where there is risk of repeat head injury until cleared by primary care.. Return to the ED for any new or worsening symptoms. - Billing Disposition and Condition Condition: STABLE Disposition: Home
[2019-05-08] MEDS ORDERED: Ondansetron ODT TAB* 4 MG PO ONE (18:24)
[2019-05-08] MEDS ORDERED: Acetaminophen TAB* 325 MG PO ONE (18:24)
[2019-05-08 18:46] VITALS: BP 112/68
== END 2019-05-08 18:45 | disposition home or self-care (01) ==
LOC: ED 16:02
DX: S06.0X0A Concussion without loss of consciousness, initial encounter (principal); W22.09XA Striking against other stationary object, initial encounter; Y92.9 Unspecified place or not applicable; Z88.8 Allergy status to other drugs, medicaments and biological substances
CPT/HCPCS: 99282; A9270-GY

== ENCOUNTER 2019-06-05 12:31 | Emergency (ER) | payer OTHER ==
--- NOTE | 2019-06-05 12:44 | UC ---
FLU HPI - HPI Summary HPI Summary: 19yo female presenting with vomiting, diarrhea, fever, and chills since this morning. Patient states "I think I have the flu." Notes ~15 episodes of both emesis and diarrhea. Notes nausea and "sharp" lower abdominal pain not relieved with diarrhea or vomiting. Denies blood in stool. Denies hematemesis. Notes myalgias. Denies URI symptoms. LMP a few months ago d/t new control. - History of Current Complaint Stated Complaint: VOMITING ABDOMINAL PAIN BACK PAIN CHILLS Hx Last Menstrual Period: 1.5 months ago Onset/Duration: Sudden Onset, Lasting Hours - Allergy/Home Medications Allergies/Adverse Reactions: Allergies Allergy/AdvReac Type Severity Reaction Status Date / Time ranitidine [From Zantac] Allergy Unknown Verified 05/08/19 16:13 Reaction Details PMH/Surg Hx/FS Hx/Imm Hx Other History Of: Negative For: Anticoagulant Therapy - Surgical History Surgical History: Yes Surgery Procedure, Year, and Place: Right foot 5th toe - Family History Known Family History: Positive: Hypertension, Blood Disorder - anemia - Social History Alcohol Use: Rare Substance Use Type: None Smoking Status (MU): Never Smoked Tobacco Review of Systems All Other Systems Reviewed And Are Negative: Yes Constitutional: Positive: Fever, Chills ENT: Positive: Negative Respiratory: Positive: Negative Cardiovascular: Positive: Negative Gastrointestinal: Positive: Abdominal Pain - "sharp abdominal pain", Vomiting - "x15", Diarrhea - "x15", Nausea Genitourinary: Positive: Negative Musculoskeletal: Positive: Myalgia Neurological: Negative: Headache Physical Exam Triage Information Reviewed: Yes Appearance: Well-Nourished, Ill-Appearing, Pain Distress Vital Signs: Vital Signs (72 hours) 06/05/19 12:43 Temperature 99.2 F Pulse Rate 136 Respiratory 18 Rate Blood Pressure 115/74 (mmHg) O2 Sat by Pulse 97 Oximetry Lab Results 06/05/19 06/05/19 06/05/19 Range/Units 13:06 13:16 13:18 POC Urine Color Yellow POC Urine Clarity Clear POC Urine pH 5.5 (5-9) POC Ur Specif [place] >= 1.030 (1.010-1.030) POC Urine Protein Negative (Negative) POC Ur Glucose (UA) Negative (Negative) POC Urine Ketones 2+ A (Negative) POC Urine Blood Negative (Negative) POC Urine Nitrite Negative (Negative) POC Urine Bilirubin 1+ A (Negative) POC Urine Urobilinogen 0.2 (Negative) POC U Leukocyte Esteras 1+ A (Negative) POC Ur Test Negative (Negative) Influenza A (Rapid) Negative (Negative) Influenza B (Rapid) Negative (Negative) Vital Signs Reviewed: Yes Eyes: Positive: Conjunctiva Clear ENT: Positive: Hearing grossly normal, Pharynx normal Neck exam: Normal Neck: Positive: Supple, Nontender, No Lymphadenopathy Respiratory Exam: Normal Respiratory: Positive: Lungs clear, Normal breath sounds, No respiratory distress, No accessory muscle use. Negative: Crackles, Rhonchi, Stridor, Wheezing Cardiovascular Exam: Other - regular rhythm Cardiovascular: Positive: Tachycardia Abdomen Description: Positive: Nontender - diffuse b/l lower abdominal pain with palpation, Soft, CVA Tenderness (R), CVA Tenderness (L), Guarding, [place]Bur[place] 's Point Tenderness. Negative: Distended Bowel Sounds: Positive: Present - BSx4 Neurological: Positive: Alert Psychological: Positive: Age Appropriate Behavior Skin Exam: Normal Flu Course/Dx - Course Course Of Treatment: Patient presenting with n/v/d and abdominal pain since this morning. UA 1+ leuk , 1+ bili, 2+ ketones. Neg urine . Negative influenza. Patient tachycardic. Received zofran with some nausea relief. Patient voiced increasing abdominal pain with here. She declined eating or drinking water, stating she "felt like she was going to and just wants to go home." I recommended further evaluation in the ED for worsening abd pain. Patient voiced understanding and went via [employer]. Patient stable upon departure. - Differential Dx/Diagnosis Provider Diagnosis: Acute bilateral lower abdominal pain, Nausea and vomiting, Acute diarrhea Discharge ED - Sign-Out/Discharge Documenting (check all that apply): Patient Departure All imaging exams completed and their final reports reviewed: No Studies - Discharge Plan Condition: Stable Disposition: HOME-RECOMMEND TO ED Patient Education Materials: Acute Abdominal Pain (ED) Referrals: No Primary Care Phys,NOPCP [Primary Care Provider] - Additional Instructions: The provider that evaluated you today thinks that you need additional testing that can be completed the emergency department. It is recommended that you go directly to emergency department for further evaluation. This evaluation included blood work or imaging. This testing will be directed and decided by the provider that evaluates you at the emergency department. If pain becomes worse, you feel lightheaded, you have uncontrolled vomiting, or you have any other concerns while you are being driven to emergency department as recommended to nish and contact 911. - Billing Disposition and Condition Condition: STABLE Disposition: Home-Recommend to ED
[2019-06-05 12:48] VITALS: BP 115/74
[2019-06-05] MEDS ORDERED: Ondansetron ODT TAB* 4 MG SL ONE (13:02)
[2019-06-05 13:18] LABS: Influenza A Molecular NEGATIVE (Negative); Influenza B Molecular NEGATIVE (Negative)
--- NOTE | 2019-06-07 15:21 | UC ---
- Progress Note Progress Note: Reviewed positive urine culture from 06/05 visit. It is likely that this is contaminated sample from the diarrhea which she was having. Please call to ensure that she does not have urinary symptoms. She is on vanco for C. diff but that will not treat a urinary infection. She is meant to be seeing Dr. Elizabeth with Infectious Disease. Course/Dx - Diagnoses Provider Diagnoses: Acute bilateral lower abdominal pain, Nausea and vomiting, Acute diarrhea Discharge ED - Sign-Out/Discharge Documenting (check all that apply): Post-Discharge Follow Up All imaging exams completed and their final reports reviewed: No Studies - Discharge Plan Condition: Stable Disposition: HOME-RECOMMEND TO ED Patient Education Materials: Acute Abdominal Pain (ED) Referrals: No Primary Care Phys,NOPCP [Primary Care Provider] - Additional Instructions: The provider that evaluated you today thinks that you need additional testing that can be completed the emergency department. It is recommended that you go directly to emergency department for further evaluation. This evaluation included blood work or imaging. This testing will be directed and decided by the provider that evaluates you at the emergency department. If pain becomes worse, you feel lightheaded, you have uncontrolled vomiting, or you have any other concerns while you are being driven to emergency department as recommended to pullover and contact 911. - Billing Disposition and Condition Condition: STABLE Disposition: Home-Recommend to ED
== END 2019-06-05 14:04 | disposition home health service (06) ==
LOC: UCEAST 12:31
DX: R11.2 Nausea with vomiting, unspecified (principal); R19.7 Diarrhea, unspecified; R10.30 Lower abdominal pain, unspecified; R50.9 Fever, unspecified; R11.10 Vomiting, unspecified; M79.10 Myalgia, unspecified site; Z88.8 Allergy status to other drugs, medicaments and biological substances
CPT/HCPCS: 81003; 84702; 87086; 99212; A9270-GY; G0463

== ENCOUNTER 2019-06-05 14:21 | Emergency (ER) | payer OTHER ==
[2019-06-05 15:12] LABS: ABS Lymphocytes 0.2 10^3/ul (1.0-4.8); ABS Monocytes 0.4 10^3/ul (0-0.8); ABS Neutrophils 7.4 10^3/ul (1.5-7.7); Hematocrit 43 % (35-47); Hemoglobin 14.8 g/dL (12.0-16.0); Lymphocyte % 2.5 %; Mean Corpuscular HGB Conc 35 g/dL (31-36); Mean Corpuscular Hemoglobin 29 pg (27-31); Mean Corpuscular Volume 84 fL (80-97); Mean Platelet Volume 7.8 fL (7.4-10.4); Platelet Count 222 10^3/uL (150-450); Red Blood Count 5.06 10^6 /uL (3.70-4.87); Red Cell Distribution Width 12 % (10-15)
[2019-06-05 15:30] LABS: ALT 14 U/L (7-52); AST 19 U/L (13-39); Albumin 5.1 g/dL (3.2-5.2); Albumin/Globulin Ratio 1.6 (1-3); Alkaline Phosphatase 56 U/L (34-104); Anion Gap 10 mmol/L (2-11); BUN/Creatinine Ratio 22.2 (8-20); Blood Urea Nitrogen 18 mg/dL (6-24); C Reactive Protein 7.23 mg/L (<8.01); CO2 Carbon Dioxide 23 mmol/L (22-32); Calcium 9.7 mg/dL (8.6-10.3); Chloride 102 mmol/L (101-111); EGFR Non-African American 89.3 (>60); Globulin 3.2 g/dL (2-4); Glucose 128 mg/dL (70-100); Magnesium 1.7 mg/dL (1.9-2.7); Potassium 4.1 mmol/L (3.5-5.0); Sodium 135 mmol/L (135-145); Total Protein 8.3 g/dL (6.4-8.9)
[2019-06-05] MEDS ORDERED: NS 0.9% 1000 ML** 1,000 ML IV ONE ×2 (16:33→18:54)
[2019-06-05] MEDS ORDERED: Ondansetron INJ* 2 MG/ML VIAL IV ONE (16:34)
[2019-06-05] MEDS ORDERED: Ketorolac INJ* 30 MG/ML 1 ML VIAL IV PUSH ONE (16:34)
--- NOTE | 2019-06-05 16:38 | ED ---
GI/ HPI - HPI Summary HPI Summary: 19 year old female presents with nausea vomiting and diarrhea today. States that started this morning. She states she's had over 20 episodes of diarrhea. She states that it started as watery stool and then became water and blood tinge to it. She denies any fever. Was on antibiotics 3 weeks ago. No recent travel. Has not been camping recently. No one around her is sick. She's had a fever and chills. did not eat anything different. Patient denies any shortness breath. No cough. She admits to nausea vomiting. She has not been able to keep anything down. Was given Zofran at urgent care which did not help. She admits to lower abdominal pain. This never happened before. neg hcg at urgent care. - History of Current Complaint Chief Complaint: EDNauseaVomitDiarrh Time Seen by Provider: 06/05/19 16:25 Stated Complaint: ABD PAIN FROM CC Hx Last Menstrual Period: 1.5 months ago Pain Intensity: 6 - Allergy/Home Medications Allergies/Adverse Reactions: Allergies Allergy/AdvReac Type Severity Reaction Status Date / Time ranitidine [From Zantac] Allergy Unknown Verified 06/05/19 14:38 Reaction Details Home Medications: Home Medications Escitalopram * [Lexapro *] 20 mg PO DAILY 06/05/19 [History Confirmed 06/05/19] Norgestimate-Ethinyl Estradiol [Pro-Rt-Vkeinw 0.18/0.215/0.25 mg-25 Mcg] 1 tab PO DAILY 06/05/19 [History Confirmed 06/05/19] PMH/Surg Hx/FS Hx/Imm Hx Endocrine/Hematology History: Denies: Hx Anticoagulant Therapy Cardiovascular History: Denies: Hx Pacemaker/ICD History: Denies: Hx Dialysis Musculoskeletal History: Reports: Hx Scoliosis Sensory History: Denies: Hx Eye Prosthesis, Hx Deafness Opthamlomology History: Denies: Hx Eye Prosthesis Neurological History: Denies: Hx Dementia - Surgical History Surgery Procedure, Year, and Place: Right foot 5th toe Infectious Disease History: No Infectious Disease History: Denies: Traveled Outside the [place] in Last 30 Days - Family History Known Family History: Positive: Hypertension, Blood Disorder - anemia - Social History Alcohol Use: Rare Substance Use Type: Reports: None Smoking Status (MU): Never Smoked Tobacco Review of Systems Positive: Fever, Chills Negative: Chest Pain Negative: Shortness Of Breath Positive: Abdominal Pain, Vomiting, Diarrhea, Nausea All Other Systems Reviewed And Are Negative: Yes Physical Exam Triage Information Reviewed: Yes Vital Signs On Initial Exam: Initial Vitals Temp Pulse Resp BP Pulse Ox 99.7 F 136 19 116/72 98 06/05/19 14:35 06/05/19 14:35 06/05/19 14:35 06/05/19 14:35 06/05/19 14:35 Vital Signs Reviewed: Yes Appearance: Positive: Well-Appearing Skin: Positive: Warm, Dry Head/Face: Positive: Normal Head/Face Inspection Eyes: Positive: Normal, Conjunctiva Clear ENT: Positive: Pharynx normal Respiratory/Lung Sounds: Positive: Clear to Auscultation, Breath Sounds Present Cardiovascular: Positive: Normal, RRR Abdomen Description: Positive: Soft, Other: - tenderness in lower abd Bowel Sounds: Positive: Present Musculoskeletal: Positive: Normal Neurological: Positive: Normal Psychiatric: Positive: Normal Procedures - Sedation Patient Received Moderate/Deep Sedation with Procedure: No Diagnostics - Vital Signs Vital Signs Temp Pulse Resp BP Pulse Ox 06/05/19 16:23 102 F 144 18 129/77 99 06/05/19 14:35 99.7 F 136 19 116/72 98 - Laboratory Lab Results: Lab Results 06/05/19 06/05/19 06/05/19 Range/Units 15:01 15:01 15:01 WBC 8.0 (3.5-10.8) 10^3/uL RBC 5.06 H (3.70-4.87) 10^6 /uL Hgb 14.8 (12.0-16.0) g/dL Hct 43 (35-47) % MCV 84 (80-97) fL MCH 29 (27-31) pg MCHC 35 (31-36) g/dL RDW 12 (10-15) % Plt Count 222 (150-450) 10^3/uL MPV 7.8 (7.4-10.4) fL Neut % (Auto) 92.0 % Lymph % (Auto) 2.5 % [place] % (Auto) 5.4 % Eos % (Auto) 0.0 % Baso % (Auto) 0.1 % Absolute Neuts (auto) 7.4 (1.5-7.7) 10^3/ul Absolute Lymphs (auto) 0.2 L (1.0-4.8) 10^3/ul Absolute Monos (auto) 0.4 (0-0.8) 10^3/ul Absolute Eos (auto) 0.0 (0-0.6) 10^3/ul Absolute Basos (auto) 0.0 (0-0.2) 10^3/ul Absolute Nucleated RBC 0.0 10^3/ul Nucleated RBC % 0.0 Sodium 135 (135-145) mmol/L Potassium 4.1 (3.5-5.0) mmol/L Chloride 102 (101-111) mmol/L Carbon Dioxide 23 (22-32) mmol/L Anion Gap 10 (2-11) mmol/L BUN 18 (6-24) mg/dL Creatinine 0.81 (0.51-0.95) mg/dL Est GFR ( Amer) 108.0 (>60) Est GFR (Non-Af Amer) 89.3 (>60) BUN/Creatinine Ratio 22.2 H (8-20) Glucose 128 H (70-100) mg/dL Lactic Acid 2.8 H* (0.5-2.0) mmol/L Calcium 9.7 (8.6-10.3) mg/dL Magnesium 1.7 L (1.9-2.7) mg/dL Total Bilirubin 0.80 (0.2-1.0) mg/dL AST 19 (13-39) U/L ALT 14 (7-52) U/L Alkaline Phosphatase 56 (34-104) U/L C-Reactive Protein 7.23 (<8.01) mg/L Total Protein 8.3 (6.4-8.9) g/dL Albumin 5.1 (3.2-5.2) g/dL Globulin 3.2 (2-4) g/dL Albumin/Globulin Ratio 1.6 (1-3) Lipase < 10 L (11.0-82.0) U/L Result Diagrams: 06/05/19 15:01 06/05/19 15:01 Lab Statement: Any lab studies that have been ordered have been reviewed, and results considered in the medical decision making process. Re-Evaluation - Re-Evaluation First Eval Re-Evaluation Time: 17:51 Change: Improved Comment: feeling better Second Eval Re-Evaluation Time: 20:47 Change: Improved Comment: tolerated crackers and water GIGU Course/Dx - Course Course Of Treatment: 19 year old female presents with nausea vomiting and diarrhea today. States that started this morning. She states she's had over 20 episodes of diarrhea. She states that it started as watery stool and then became water and blood tinge to it. She denies any fever. Was on antibiotics 3 weeks ago. No recent travel. Has not been camping recently. No one around her is sick. She's had a fever and chills. did not eat anything different. Patient denies any shortness breath. No cough. She admits to nausea vomiting. She has not been able to keep anything down. Was given Zofran at urgent care which did not help. She admits to lower abdominal pain. This never happened before. neg hcg at urgent care. On exam has tenderness in lower abdomen. Wbc normal. Tachycardic. Gave fluids and toradol and zofran and feeling better. Lactic elevated. Magnesium 1.7. We'll get stool culture. c diff positive. will place on vancomycin. tolerated crackers will here. will send with zofran. told follow up with [facility]. patient understand and agrees with plan. - Diagnoses Differential Diagnoses - Female: Gastroenteritis (Viral), Gastroenteritis ( Bacterial), Urinary Tract Infection Provider Diagnoses: C. difficile diarrhea, Vomiting Discharge ED - Sign-Out/Discharge Documenting (check all that apply): Patient Departure - Discharge Plan Condition: Good Disposition: HOME Prescriptions: Ondansetron ODT TAB* [Zofran 4 MG Odt TAB*] 4 - 8 mg PO Q6H PRN #20 tab.odt PRN Reason: Nausea Vancomycin CAP* 125 mg PO QID #39 cap Patient Education Materials: C Diff (Clostridium Difficile) Infection (ED) Referrals: Mehrdad WHALEY,Yao Wren [Medical Doctor] - Additional Instructions: Take vancomycin four times a day for 10 days Take Zofran every 6 hours for nausea Wash hands follow up with [facility] a referral was given to infectious disease if continue to have symptoms after antibiotics finish Return to ED if develop any new or worsening symptoms - Billing Disposition and Condition Condition: GOOD Disposition: Home
[2019-06-05] MEDS ORDERED: Lactated Ringers 1000 ML Bag* 1,000 ML IV ONE (17:00)
[2019-06-05 19:25] LABS: Urine Appearance Cloudy; Urine Bilirubin Negative (Negative); Urine Blood 2+ (Negative); Urine Color Yellow; Urine Glucose Negative (Negative); Urine Ketones Negative (Negative); Urine Nitrite Negative (Negative); Urine Protein Negative (Negative); Urine Specific Gravity 1.016 (1.010-1.030); Urine Urobilinogen Negative (Negative)
[2019-06-05 19:33] LABS: Urine Bacteria 1+ (Absent); Urine Red Blood Cell Trace(0-2/hpf) (Absent); Urine Squamous Epithelial Cell Present (Absent); Urine White Blood Cell 2+(11-20/hpf) (Absent)
[2019-06-05] MEDS ORDERED: Metoclopramide IV* 5 MG/ML 2 ML VIAL IV SLOW PU ONE (20:36)
[2019-06-05] MEDS ORDERED: Vancomycin CAP* 125 MG CAP PO ONE (20:46)
[2019-06-05] MEDS ORDERED: O ndansetron ODT 4MG 5TAB PRPK 4 MG PAK PO ONE (21:03)
[2019-06-05 21:31] VITALS: BP 127/83
--- NOTE | 2019-06-06 05:47 | ED ---
Imaging and Labs Follow Up Follow Up Type: Labs/Cultures Labs/Culture Result: c diff positive Patient Communication/Plan: Patient was placed on vancomycin Patient Communication/Plan: Appropriately treated, nothing further required Provider Diagnoses: C. difficile diarrhea, Vomiting
== END 2019-06-05 21:07 | disposition home or self-care (01) ==
LOC: ED 14:21
DX: A04.72 Enterocolitis due to Clostridium difficile, not specified as recurrent (principal); R50.9 Fever, unspecified; R10.9 Unspecified abdominal pain; R11.2 Nausea with vomiting, unspecified; R19.7 Diarrhea, unspecified
CPT/HCPCS: 36415; 80053; 81003; 81015; 83605; 83690; 83735; 85025; 86140; 87045; 87046; 87177; 87209; 87328; 87329; 87493; 87899; 96361; 96374; 96375; 99284; A9270-GY; J1885; J2405; J2765